=== PATIENT | male | born 1950 | race Caucasian/White ===

== ENCOUNTER 2019-06-30 16:11 | Emergency (ER) | payer MEDICARE ==
[2019-06-30 16:41] VITALS: BP 161/80
--- NOTE | 2019-06-30 17:11 | PHYS DOC ---
Past History Past Medical History: Depression (MODESTO DAVIS DO) Past Medical History: High Cholesterol (SONIA FERNANDO DO) Past Surgical History: No Surgical History (MODESTO DAVIS DO) Alcohol Use: None Drug Use: None (MODESTO DAVIS DO) Adult General Chief Complaint Chief Complaint: PSYCH EVALUATION [facility] HPI 69-year-old male presents with his sister for psychiatric evaluation. The patient is reported to be getting violent at the house. He has been hitting himself and another people when he gets angry. His sister who is taking care of him since the patient's mother , is concerned because she has small children in the house and they're beginning to emulate his behavior. The patient so has difficulty taking care of his basic needs. He has been diagnosed with depression and schizophrenia in the past. He has not had his cholesterol or depression medicines for the last 1 month due to the transition of moving here. When I asked the patient about these issues directly, he does not really answer. He also does not dispute the claims. (MODESTO DAVIS DO) Review of Systems Review of Systems Constitutional: Denies fever or chills [] Eyes: Denies change in visual acuity, redness, or eye pain [] HENT: Denies nasal congestion or sore throat [] Respiratory: Denies cough or shortness of breath [] Cardiovascular: No additional information not addressed in HPI [] GI: Denies abdominal pain, nausea, vomiting, bloody stools or diarrhea [] : Denies dysuria or hematuria [] Musculoskeletal: Denies back pain or joint pain [] Integument: Denies rash or skin lesions [] Neurologic: Denies headache, focal weakness or sensory changes [] Endocrine: Denies polyuria or polydipsia [] All other systems were reviewed and found to be within normal limits, except as documented in this note. (MODESTO DAVIS DO) Allergies Allergies Allergies Coded Allergies Type Severity Reaction Last Updated Verified No Known Drug Allergies 06/30/19 No (MODESTO DAVIS DO) Physical Exam Physical Exam Constitutional: Well developed, well nourished, no acute distress, non-toxic appearance. [] HENT: Normocephalic, atraumatic, bilateral external ears normal, oropharynx moist, no oral exudates, nose normal. [] Eyes: PERRLA, EOMI, conjunctiva normal, no discharge. [] Neck: Normal range of motion, no tenderness, supple, no stridor. [] Cardiovascular:Heart rate regular rhythm, no murmur [] Lungs & Thorax: Bilateral breath sounds clear to auscultation [] Abdomen: Bowel sounds normal, soft, no tenderness, no masses, no pulsatile masses. [] Skin: Warm, dry, no erythema, no rash. [] Back: No tenderness, no CVA tenderness. [] Extremities: No tenderness, no cyanosis, no clubbing, ROM intact, no edema. [] Neurologic: Alert and oriented X 3, normal motor function, normal sensory function, no focal deficits noted. [] Psychologic: Affect blunted, judgement normal, mood quiet. [] (MODESTO DAVIS DO) Current Patient Data Vital Signs Vital Signs Date Time Temp Pulse Resp B/P (MAP) Pulse Ox O2 Delivery O2 Flow Rate FiO2 06/30/19 16:41 97.9 65 18 100 Room Air Lab Results Laboratory Tests Test 06/30/19 16:20 Glucose (Fingerstick) 138 mg/dL (70-99) H (MODESTO DAVIS DO) EKG EKG [] (MODESTO DAVIS DO) Radiology/Procedures Radiology/Procedures [] (MODESTO DAVIS DO) Course & Med Decision Making Course & Med Decision Making Pertinent Labs and Imaging studies reviewed. (See chart for details) The patient's labs and psychiatric evaluation are pending. I am signing the patient out to Dr. Fernando at 1800. He will follow-up on the labs and determine his final disposition. [] (MODESTO DAVIS DO) Course & Med Decision Making Received patient at 1800. Agree with previous H&P. Evaluation of the labs show that they were not showing any acute features, and no evidence of an infection. Patient was evaluated by a tele-psych. They did not believe he had any acute re ason for involuntary admission. There is suggestion was to start him back on his Prozac and [facility]. When discussing the child issue at home, their recommendation was for the child to stay elsewhere for the next several days. Discussed findings and plan with patient and family who voiced understanding. All questions were answered. Patient was discharged in improved condition. (SONIA FERNANDO DO) Dragon Disclaimer Dragon Disclaimer This electronic medical record was generated, in whole or in part, using a voice recognition dictation system. (MODESTO DAVIS DO) Departure Departure: Impression: Primary Impression: Violent behavior Additional Impression: Depression Disposition: 01 HOME, SELF-CARE Condition: IMPROVED Referrals: PCP,KATIANA (PCP) Patient Instructions: Depression, Adult, Self-Destructive Behavior Additional Instructions: Follow-up with your regular doctor in 2 days. If you do not have a regular doctor list of local clinics will be provided. Return to the ER if thinking about hurting yourself, anyone else, or any other concerns. Scripts Fluoxetine Hcl (PROZAC) 20 Mg Capsule 1 CAP PO [id number] for depression, #30 CAP 0 Refills Prov: SONIA FERNANDO DO 06/30/19 Problem Qualifiers Additional Impression: Depression Depression Type: unspecified Qualified Codes: F32.9 - Major depressive disorder, single episode, unspecified MODESTO DAVIS DO Jun 30, 2019 17:11 SONIA FERNANDO DO Jun 30, 2019 21:45
[2019-06-30 17:21] LABS: BASO % 1 % (0-3); EOS % 0 % (0-3); HEMATOCRIT 37.9 % (39.0-53.0); LYMPH # 0.8 x10^3/uL (1.0-4.8); LYMPH % 18 % (24-48); MEAN CORPUSCULAR HEMOGLOBIN 32 pg (25-35); MEAN CORPUSCULAR HGB CONC 34 g/dL (31-37); MEAN CORPUSCULAR VOLUME 92 fL (79-100); MONO # 0.3 x10^3/uL (0.0-1.1); MONO % 6 % (0-9); NEUT # 3.2 x10^3uL (1.8-7.7); NEUT % 75 % (31-73); PLATELET COUNT 249 x10^3/uL (140-400); RED BLOOD COUNT 4.12 x10^6/uL (4.30-5.70); RED CELL DISTRIBUTION WIDTH 13.6 % (11.5-14.5); WHITE BLOOD COUNT 4.3 x10^3/uL (4.0-11.0)
[2019-06-30 17:32] LABS: ALBUMIN 3.5 g/dL (3.4-5.0); ALBUMIN/GLOBULIN RATIO 1.1 (1.0-1.7); CALCIUM 9.3 mg/dL (8.5-10.1); CREATININE 0.9 mg/dL (0.7-1.3); GFR 83.4; POTASSIUM 3.2 mmol/L (3.5-5.1); TOTAL BILIRUBIN 0.6 mg/dL (0.2-1.0); TOTAL PROTEIN 6.8 g/dL (6.4-8.2)
--- NOTE | 2019-06-30 17:39 | EKG ---
[address] [address] Test Date: 2019-06-30 Test Time: 17:01:02 Pat Name: LINH AGUSTIN Department: Room: Gender: M Tax Technician: POLO : 1950 Requested By: MODESTO DAVIS Order Number: [id number] Reading MD: Measurements Intervals [place] Rate: 57 P: 59 PA: 242 QRS: 27 QRSD: 86 T: 34 QT: 414 QTc: 402 Interpretive Statements SINUS RHYTHM PROLONGED PA INTERVAL QRS(T) CONTOUR ABNORMALITY CONSIDER ANTEROSEPTAL MYOCARDIAL DAMAGE ABNORMAL ECG RI6.01 No previous ECG available for comparison
[2019-06-30 18:18] LABS: AMPHETAMINE/METHAMPHETAMINE NEG (NEG); BARBITURATES NEG (NEG); BENZODIAZEPINES NEG (NEG); CANNABINOIDS NEG (NEG); COCAINE NEG (NEG); METHADONE NEG (NEG); OPIATES NEG (NEG); PHENCYCLIDINE NEG (NEG)
[2019-06-30 18:25] LABS: BACTERIA,URINE 0 /HPF (0-FEW); BILIRUBIN,URINE NEG (NEG); CLARITY,URINE CLEAR; COLOR,URINE YELLOW; GLUCOSE,URINE 100 mg/dL (NEG); NITRITE,URINE NEG (NEG); RBC,URINE 0 /HPF (0-2); SQUAMOUS EPITHELIAL CELL,UR OCC /LPF; UROBILINOGEN,URINE 0.2 mg/dL (0.2 mg/dL); WBC,URINE OCC /HPF (0-4)
[2019-06-30] MEDS ORDERED: FLUO20CA16 PO (21:44)
== END 2019-06-30 21:50 | disposition home or self-care (01) ==
LOC: ER 16:11
DX: R45.6 Violent behavior (principal); F32.9 Major depressive disorder, single episode, unspecified; E78.00 Pure hypercholesterolemia, unspecified
CPT/HCPCS: 36415; 80053; 80307; 81001; 82947; 83540; 83550; 83735; 85025; 93005; 99285; G0480